=== PATIENT | female | born 1950 | race Caucasian/White ===

== ENCOUNTER 2021-01-30 18:17 | Emergency (ER) | payer OTHER ==
[~2021-01-30] VITALS: Ht 162.6 cm; Wt 70.3 kg
[2021-01-30 18:28] VITALS: BP 123/65
--- NOTE | 2021-01-30 18:30 | NUR ---
Patient ambulated to bed 09 with steady/even gait.
--- NOTE | 2021-01-30 18:35 | NUR ---
Dr. Marx is evaluating patient at bedside.
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
[2021-01-30] MEDS ORDERED: ACETAMINOPHEN 325 MG TAB PO ONE (18:40)
[2021-01-30] MEDS ORDERED: ACETAMINOPHEN 325 MG TAB ONE (18:43)
--- NOTE | 2021-01-30 18:48 | NUR ---
Patient transported to [facility] via wheelchair.
--- NOTE | 2021-01-30 19:07 | NUR ---
Patient returned from RAD/CT by wheelchair.
--- NOTE | 2021-01-30 19:07 | NUR ---
Report and transfer of care endorsed to ERLINDA Gracia.
--- NOTE | 2021-01-30 19:11 | NUR ---
Report received from ERLINDA Virk for continuity of care.
--- NOTE | 2021-01-30 19:27 | NUR ---
Patient appears to be resting comfortably in bed. Respirations even and unlabored. Patient complains of some pain in the back of the neck that feels achey but is tolerable. Safety measures in place. Will continue to monitor.
[2021-01-30] MEDS ORDERED: ACET-2619 PO (19:44)
[2021-01-30 19:54] VITALS: BP 143/74
== END 2021-01-30 19:53 | disposition home or self-care (01) ==
LOC: MED 18:17
DX: S16.1XXA Strain of muscle, fascia and tendon at neck level, initial encounter (principal); S39.012A Strain of muscle, fascia and tendon of lower back, initial encounter; V49.60XA Unspecified car occupant injured in collision with unspecified motor vehicles in traffic accident, initial encounter; Y93.89 Activity, other specified; Y92.89 Other specified places as the place of occurrence of the external cause; Y99.8 Other external cause status
CPT/HCPCS: 70450; 72125; 72220; 99285